=== PATIENT | female | born 1975 | race Caucasian/White ===

== ENCOUNTER 2018-02-10 14:20 | Emergency (ER) | payer OTHER ==
[~2018-02-10] VITALS: Ht 162.6 cm; Wt 74.8 kg
[~2018-02-10 14:20] MED LIST: CEPACOL SORE T1 EAC5 MM
[2018-02-10] MEDS ORDERED: METHYLPREDNISOLO4 M1 PO (14:50)
== END 2018-02-10 15:01 | disposition home or self-care (01) ==
LOC: ED 14:20
DX: L25.9 Unspecified contact dermatitis, unspecified cause (principal); F17.200 Nicotine dependence, unspecified, uncomplicated
CPT/HCPCS: 99283; Q0163